=== PATIENT | female | born 1940 | race Caucasian/White ===

== ENCOUNTER 2018-03-24 07:36 | Day surgery (SDC) | payer OTHER ==
[2018-03-24] MEDS ORDERED: LIDOCAINE 1% 20 ML MDV ID STA (08:15)
[2018-03-24] MEDS ORDERED: DIPRIVAN 20 ML VIAL IVP ONE (10:07)
[2018-03-24 16:07] VITALS: BP 128/78; TEMP 98.5
--- NOTE | 2018-03-25 12:48 | OP ---
INDICATIONS FOR PROCEDURE: 77-year-old female presents for screening colon exam. She has a family history of colon cancer involving her father in his 60s. Her sisters had colon polyps. MEDICATIONS: SEE ANESTHESIA NOTES. PROCEDURE: COLONOSCOPY TO THE SIGMOID THEN ABORTED. REPORT: The risks, benefits, alternatives and limitations were discussed in detail with the patient. Informed consent was obtained. After adequate sedation was achieved, a digital rectal exam revealed good tone, no masses. The colonoscope was introduced into the rectum. Unfortunately, there was mucousy adherent semi solid stool present. This was coating the howard. I advanced the scope under direct visual guidance and I was able to reach the sigmoid but the prep became worse. I was not able to adequately visualize the howard of the colon. Therefore, the procedure was aborted secondary to an inadequate prep. The patient had told me prior to the procedure that she was not able to drink all of the prescribed laxative but she felt that she may be clean. She did tolerate the procedure well with stable vital signs and pulse oximetry throughout. IMPRESSION: 1. INADEQUATE PREP. 2. PROCEDURE ABORTED SECONDARY TO INADEQUATE PREP. RECOMMENDATIONS: She will need colonoscopy rescheduled with proper prep. If she is willing, we can reschedule this tomorrow with her staying on a clear liquid diet today. She will be instructed to drink two bottles of Magnesium Citrate today and then a third bottle in the a.m. four hours prior to the procedure. If she is not able to reschedule the procedure for tomorrow then she will contact my office to reschedule at a later date. cc: Dr. Barb RODRIGUES
== END 2018-03-24 11:00 | disposition home or self-care (01) ==
LOC: SURG 07:36
PROVIDERS: ATTEND Internal Medicine Gastroenterology
DX: Z86.010 Personal history of colon polyps (principal); Z80.0 Family history of malignant neoplasm of digestive organs; Z83.71 Family history of colonic polyps
CPT/HCPCS: 00812; G0105